=== PATIENT | male | born 1980 ===

== ENCOUNTER 2019-05-06 19:00 | Emergency (ER) | payer SELFPAY ==
[2019-05-06 19:01] VITALS: BP 160/117
[2019-05-06] MEDS ORDERED: LISI20TA29 PO (19:03)
--- NOTE | 2019-05-06 19:04 | ER Report ---
History and Physical Time Seen By MD: 18:57 HPI/ROS CHIEF COMPLAINT: Residential clearance HISTORY OF PRESENT ILLNESS: 38-year-old male brought in by police for [facility] clearance. Patient has slurred speech and is obviously intoxicated. Patient voices no complaints. Patient states he has history of hypertension. REVIEW OF SYSTEMS: Respiratory: No cough, no dyspnea. Cardiovascular: No chest pain, no palpitations. Gastrointestinal: No vomiting, no abdominal pain. Musculoskeletal: No back pain. Allergies: Coded Allergies: No Known Drug Allergies (Unverified , 05/06/19) Home Meds Reported Medications Lisinopril (LISINOPRIL) 20 Mg Tablet, 20 MG PO QDAY, TAB 05/06/19 Reviewed Nurses Notes: Yes Old Medical Records Reviewed: Yes Constitutional Vital Sign - Last 24 Hours 05/06/19 19:01 Temp 99.0 Pulse 103 Resp 18 B/P (MAP) 160/117 Pulse Ox 90 Physical Exam Vital signs stable, afebrile, pulse ox normal General Appearance: The patient is alert, has no immediate need for airway protection and no current signs of toxicity. Slurred speech and heavy odor of EtOH, consistent with alcohol intoxication. Patient's also incontinent of urine., Palpation of the head and neck reveals no tenderness or trauma HEENT: Pupils equal and round no injection. TMs normal, oropharynx without dental trauma, facial bones intact on palpation Respiratory: Chest is non tender, lungs are clear to auscultation. No chest wall tenderness Cardiac: regular rate and rhythm Gastrointestinal: Abdomen is soft and non tender, no masses, bowel sounds normal. Musculoskeletal: Neck: Neck is supple and non tender. Extremities have full range of motion and are non tender. Skin: No rashes or lesions. DIFFERENTIAL DIAGNOSIS: After history and physical exam differential diagnosis was considered for alcohol intoxication, [facility] clearance, polysubstance abuse Medical Decision Making ED Course/Re-evaluation ED Course Patient was minute to an examination room. H&P was done. The differential diagnoses was considered. On clinical examination. Patient has no findings. She has stable vital signs. He voices no complaints. He is medical cleared for [facility] admission Decision to Disposition Date: May 06, 2019 Decision to Disposition Time: 19:02 Depart Departure Latest Vital Signs Vital Signs Date Time Temp Pulse Resp B/P (MAP) Pulse Ox O2 Delivery O2 Flow Rate FiO2 05/06/19 19:01 99.0 103 18 160/117 90 Impression: Primary Impression: Medical clearance for incarceration Additional Impression: Alcohol intoxication Condition: Improved Disposition: HOME OR SELF-CARE Patient Instructions: Abuse of Alcohol (ED) Additional Instructions: Medical cleared for [facility] admission Problem Qualifiers Additional Impression: Alcohol intoxication Complication of substance-induced condition: uncomplicated Qualified Codes: F10.920 - Alcohol use, unspecified with intoxication, uncomplicated MOHIT GOINS DO May 06, 2019 19:04
== END 2019-05-06 19:10 ==
LOC: ER 19:05
DX: F10.920 Alcohol use, unspecified with intoxication, uncomplicated (principal)
CPT/HCPCS: 99281